=== PATIENT | male | born 1985 | race Hispanic/Latino ===

== ENCOUNTER 2017-12-25 10:19 | Emergency (ER) | payer OTHER ==
[2017-12-25] MEDS: diazePAM 5 MG TAB PO (11:11)
[2017-12-25] MEDS: KETOROLAC TROMETHAMINE 10 MG TAB PO (11:11)
== END 2017-12-25 12:11 | disposition home or self-care (01) ==
LOC: M ED 10:19
DX: S39.002A Unspecified injury of muscle, fascia and tendon of lower back, initial encounter (principal); X50.9XXA Other and unspecified overexertion or strenuous movements or postures, initial encounter; Y92.89 Other specified places as the place of occurrence of the external cause; Y93.B9 Activity, other involving muscle strengthening exercises; M54.17 Radiculopathy, lumbosacral region; F17.210 Nicotine dependence, cigarettes, uncomplicated
CPT/HCPCS: 72110